=== PATIENT | male | born 1985 | race Caucasian/White ===

== ENCOUNTER → 2021-01-20 08:16 | Outpatient (BNVA) | payer SELFPAY | PROVIDERS: Visit Provider Physician Assistant | DX: K21.9 Gastro-esophageal reflux disease without esophagitis (principal); K22.70 Barrett's esophagus without dysplasia; R13.10 Dysphagia, unspecified | CPT/HCPCS: Q3014 ==

== ENCOUNTER 2021-02-08 10:34 | Day surgery (SDC) | payer OTHER, SELFPAY ==
[2021-02-02 16:07] VITALS: BMI 31.0
--- NOTE | 2021-02-04 13:59 | P.CONAN_ITS ---
Documented by User: Sheree Gordon 02/04/21 13:59 HPI - Anesthesia Eval Consult details Narrative: 35yo M for Upper Endoscopy PMFSH Active Problems Active Problems: All Active Problems (Updated 02/02/21 @ 16:04 by Millie Caldera) Odynophagia (Acute) Barretts esophagus (Acute) Acid reflux (Acute) Past Medical History Medical History (Updated 02/08/21 @ 12:23 by Jennifer Garcia) Acid reflux Allergic rhinitis Asthma Barretts esophagus GERD (gastroesophageal reflux disease) Heart murmur Hiatal hernia Family History Family History Paternal Grandfather Esophageal cancer Mother Diabetes Paternal Grandmother Diabetes Surgical History Surgical History History of ankle surgery History of esophagogastroduodenoscopy (EGD) Hx of colonoscopy Hx of myringotomy Hx of tonsillectomy [place] teeth extracted Social History Social History Household Members: Spouse and Children Alcohol intake: current Alcohol intake frequency: a few times a week Alcohol type: hard liquor Smoking Status: Never smoker Substance Use Type: Marijuana Advance Directives: No Advance Directives Information Provided: No Advance Directives on File: No 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 [employer] Allergies Allergy/AdvReac Type Severity Reaction Status Date / Time amoxicillin [AMOXICILLIN] Allergy Unknown unk Verified 02/08/21 11:01 Sulfa (Sulfonamide Allergy Unknown rash Verified 02/02/21 15:51 Antibiotics) bactrim Allergy Unknown Rash Uncoded 02/02/21 15:51 Home Medications Medication Instructions Recorded Confirmed Last Taken Type fluticasone furoate 50 1 inh INHALATION DAILY ea 01/20/21 02/02/21 Unknown History mcg/actuation blister powder for inhalation loratadine 10 mg tablet 10 mg PO DAILY 01/20/21 02/02/21 Unknown History fluticasone propionate 1 spray INTRANASAL BID 02/02/21 02/08/21 02/08/21 History Exam Exam Date and Time: February 04, 2021 1359 Height,Weight and Vital Signs: Height 6 ft 2 in Weight 109.769 kg Assessment and Plan Assessment Anesthesia Assessment: Chart Reviewed Documented by User: Jennifer Garcia 02/08/21 12:24 [facility] Past Medical History Medical History (Updated 02/08/21 @ 12:23 by Jenniefr Garcia) Acid reflux Allergic rhinitis Asthma Barretts esophagus GERD (gastroesophageal reflux disease) Heart murmur Hiatal hernia Family History Family History Paternal Grandfather Esophageal cancer Mother Diabetes Paternal Grandmother Diabetes Family history of problems with anesthesia: No Surgical History Surgical History History of ankle surgery History of esophagogastroduodenoscopy (EGD) Hx of colonoscopy Hx of myringotomy Hx of tonsillectomy [place] teeth extracted History of Problems with Anesthesia: No Social History Social History Household Members: Spouse and Children Alcohol intake: current Alcohol intake frequency: a few times a week Alcohol type: hard liquor Smoking Status: Never smoker Substance Use Type: Marijuana Advance Directives: No Advance Directives Information Provided: No Advance Directives on File: No 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 Meds Allergies Allergy/AdvReac Type Severity Reaction Status Date / Time amoxicillin [AMOXICILLIN] Allergy Unknown unk Verified 02/08/21 11:01 Sulfa (Sulfonamide Allergy Unknown rash Verified 02/02/21 15:51 Antibiotics) bactrim Allergy Unknown Rash Uncoded 02/02/21 15:51 Home Medications Medication Instructions Recorded Confirmed Last Taken Type fluticasone furoate 50 1 inh INHALATION DAILY ea 01/20/21 02/02/21 Unknown History mcg/actuation blister powder for inhalation loratadine 10 mg tablet 10 mg PO DAILY 01/20/21 02/02/21 Unknown History fluticasone propionate 1 spray INTRANASAL BID 02/02/21 02/08/21 02/08/21 History Exam Height,Weight and Vital Signs: Vital Signs Temp Pulse Resp BP Pulse Ox 02/08/21 11:06 98.7 F 82 16 136/97 H 98 Airway Mallampati Class: II TM Dist: >3cm Neck ROM: Full Loose/Missing/Broken Teeth: Yes (Some missing) Heart: RRR Lungs: CTAB Assessment and Plan Assessment Anesthesia Assessment: Anesthesia Plan Discussed and Chart Reviewed Final Anesthetic Review NPO: Yes ASA Class: II Final Preanesthetic Review: No Changes in Pt Med Stat, Meds/Allgs Chart Reviewed, Consent Obtained/Reviewed and Anes Risks/Benef Reviewed Patient Risk: Low Procedure Risk: Low Assessment/Block/Sedation in SS: Assess/Block/Sedation-SS Anesthetic Plan Anesthetic Plan: MAC: Disposition: Standard PACU
[2021-02-08 11:06] VITALS: BP 136/97; PULSE 82; RESP 16; TEMP 37.1; O2SAT 98
[2021-02-08] MEDS: Lactated Ringers 1,000 ML 100 ML IVCONT (11:21)
--- NOTE | 2021-02-08 12:19 | P.OP_ITS ---
Operative Note Operative Note Date of Service: 02/08/21 Narrative: Pre-op diagnosis: GERD Post-op diagnosis: other (Hiatal hernia, GERD) Procedure: FLEXIBLE TRANSORAL UPPER GASTROINTESTINAL ENDOSCOPY WITH BIOPSIES Consent: Indications for the procedure and potential complications of bleeding, perforation, reaction to medications and missed diagnosis were discussed with the patient and informed consent was obtained. Instrument: Olympus GIF H 190 mid size upper endoscope Monitoring: Vital signs and clinical assessment, continuous EKG monitoring, Pulse oximetry, Carbon Dioxide monitoring and blood pressure monitoring were done throughout the procedure. Procedure: The patient was placed in the left lateral decubitis position and pre-procedure medications were administered and a bite block was placed. The endoscope was inserted into the mouth and advanced under direct vision to the third part of duodenum. A careful inspection was made as the upper endoscope was withdrawn including a retroflexed examination of the proximal stomach; Findings and interventions are described below. Findings: Larynx: Normal Esophagus: GE junction at 40 cms, small hiatal hernia 40 to 42 cms. Multiple 1- 2 cms tongues of suspected Boo's - biopsies were obtained. Stomach: Mild gastric erythema. Biopsies were obtained. Grade 2 flap valve on retroflexed examination of the cardia. Duodenum: Normal bulb and descending duodenum Intervention: Biopsies as noted above Impression and Post Procedure Diagnosis: Endoscopy Findings: ESOPHAGUS: GE junction at 40 cms, small hiatal hernia 40 to 42 cms. Multiple 1- 2 cms tongues of suspected Boo's - biopsies were obtained. STOMACH: Mild gastritis Plan: Await pathology results Patient has an appointment on 02/22/21 in the GI Clinic with LAWSON Velazquez. If symptoms persist, consider a change in PPI. Above findings were reviewed with the patient and GERD and Boo's handouts were given in the discharge area Surgeon: Phillip Sol MD Anesthesia: MAC (Belgica Bennett CRNA) Automation Architect: Ed Phoenix Estimated blood loss (mL): 0 Pathology: other (A. GASTRIC ANTRUM R/O H PYLORI B. DISTAL ESOPHAGUS R/O BARRETTS) Condition: stable Disposition: PACU
--- NOTE | 2021-02-08 12:20 | MHC.SHP ---
Pre-Procedural Eval Section A The patient is an INPATIENT: No Changes since office visit: Yes Patient answered all questions; No Cold of Flu in the past 2 weeks, No New Medical Problems and No Changes in Medication The History & Physical has been completed within 30 days and I have reviewed it.: Yes Section B Chief Complaint: reflux disease Allergies: Allergies Allergy/AdvReac Type Severity Reaction Status Date / Time amoxicillin [AMOXICILLIN] Allergy Unknown unk Verified 02/08/21 11:01 Sulfa (Sulfonamide Allergy Unknown rash Verified 02/02/21 15:51 Antibiotics) bactrim Allergy Unknown Rash Uncoded 02/02/21 15:51 Exam Surgical H&P Exam: Normal: Heart, Normal: Lungs, Normal: Extremities and Normal: Abdomen Plan Diagnosis/Plan: Unchanged I have reviewed the history and physical and performed a pertinent physical examination on my patient. No changes have occurred unless specified.
[2021-02-08 12:51] VITALS: BP 128/89; PULSE 91; RESP 18; TEMP 36.7; O2SAT 97
[2021-02-08 13:06] VITALS: BP 126/84; PULSE 77; RESP 18; O2SAT 97
== END 2021-02-08 13:38 | disposition home or self-care (01) ==
PROVIDERS: PCP Internal Medicine; Visit Provider Internal Medicine Gastroenterology
PROC: 0DJ08ZZ Inspection of Upper Intestinal Tract, Via Natural or Artificial Opening Endoscopic (ICD-10-PCS; CPT 43235; principal; 2021-02-08 11:40)
DX: K21.9 Gastro-esophageal reflux disease without esophagitis (principal); K29.70 Gastritis, unspecified, without bleeding; K44.9 Diaphragmatic hernia without obstruction or gangrene; J45.909 Unspecified asthma, uncomplicated; Z79.51 Long term (current) use of inhaled steroids; Z79.899 Other long term (current) drug therapy; Z87.19 Personal history of other diseases of the digestive system; Z88.2 Allergy status to sulfonamides; Z88.8 Allergy status to other drugs, medicaments and biological substances
CPT/HCPCS: 43239; 88305; 88342; J3010

== ENCOUNTER → 2021-02-22 08:18 | Outpatient (BNVA) | payer OTHER, SELFPAY | PROVIDERS: Visit Provider Physician Assistant ==

== ENCOUNTER 2022-03-04 13:06 | Emergency (ER) | payer OTHER, SELFPAY ==
--- NOTE | ~2022-03-04 | CT_ITS ---
EXAMINATION: CT abdomen pelvis wo con CLINICAL INFORMATION: Reason for Exam abd pain, flank pain, WITH ORAL CONTRAST COMPARISON: No prior CT available for comparison. TECHNIQUE: Multidetector volumetric imaging was performed from the superior aspect of the liver through the pubic symphysis a noncontrasted study. Sagittal and coronal reformatted images were obtained on the technologist's workstation. This CT examination was performed using dose optimization techniques as appropriate, variously including the following: *Automated exposure control *Adjustment of mA and/or kV according to patient size (this includes techniques or standardized protocols for targeted exams where dose is matched to indication/reason for exam; i.e. extremities or head) *Use of iterative reconstruction technique DLP: 1120 mGy-cm FINDINGS: LOWER THORAX: Included lung bases are clear. HEPATOBILIARY: No focal hepatic lesions. No biliary ductal dilatation. GALLBLADDER: Gallbladder unremarkable. SPLEEN: Spleen is normal in size. PANCREAS: No focal mass or ductal dilatation. STOMACH AND GASTROINTESTINAL TRACT: Stomach is grossly unremarkable. There is segmental small bowel loops in the left upper abdomen which are mildly dilated interchangeably with a few segments of somewhat thickened bowel loops raising the possibility of enteritis which could be inflammatory or infection. More distally the small bowel loops are collapsed normal in diameter. No significant obstruction. No CT evidence of appendicitis. ADRENALS: No adrenal nodules. KIDNEYS/URETERS: No hydronephrosis, stones or solid mass lesions. URINARY BLADDER: Partially decompressed. PELVIC VISCERA: Unremarkable PERITONEUM: No free air or fluid. LYMPH NODES: No lymphadenopathy. VASCULAR:Abdominal aorta normal in size, no aneurysm found. BONES, ABDOMINAL WALL AND SOFT TISSUES: Age-appropriate changes of the spine and skeletal system, no destructive osteolytic or osteosclerotic bone lesion found CT/CT abdomen pelvis wo con IMPRESSION: Few segments of small bowel loops in the midabdomen left upper quadrant which exhibits circumferential wall thickening intrachanges with mildly dilated bowel loops raising the possibility of enteritis which could be inflammatory or infection including possible IBD. Please correlate with patient's clinical presentation and follow-up. Mid and distal small bowel loops are normal diameter collapse. If symptoms the last more than one week would suggest correlation with follow-up barium study small bowel series. More No evidence of bowel obstruction. No CT evidence of appendicitis, normal appendix identified in the right lower quadrant. No kidney stone or hydronephrosis.
[2022-03-04 14:00] VITALS: BP 138/97; PULSE 85; RESP 18; TEMP 36.2; O2SAT 100; BMI 40.6
[2022-03-04 14:13] LABS: MANUAL DIFF FLAG NO
[2022-03-04 14:17] LABS: Appearance Urine CLEAR; Basophils Percent Auto 0.3 % (0-2); Color Urine YELLOW; Eosinophils Absolute Auto 0.2 X10*3/uL (0.0-0.4); Eosinophils Percent Auto 2.6 % (0-4); Glucose Urine UA NEG (NEG); Hemoglobin 14.6 g/dl (14.0-18.0); Imm Gran Abs Auto 0.02 X10*3/uL (0.00-0.03); Imm Gran Pct Auto 0.2 % (0.0-0.4); Leukocyte Esterase Urine NEG (NEG); Lymphocytes Absolute Auto 2.3 X10*3/uL (1.2-4.9); Lymphocytes Percent Auto 26.7 % (20-40); Mean Corpuscular HGB Conc 32.4 g/dl (31.0-36.0); Mean Corpuscular Hemoglobin 28.1 pg (27.0-33.0); Mean Corpuscular Volume 86.5 fL (80.0-98.0); Monocytes Absolute Auto 0.5 X10*3/uL (0.1-1.2); Neutrophils Absolute Auto 5.6 x10*3/uL (2.0-8.3); Neutrophils Percent Auto 64.2 % (45-73); Nitrite Urine NEG (NEG); PH 6.5 (5.0-8.0); Platelet Count 349 X10*3/uL (160-400); Red Cell Distribution Width 12.9 % (11.0-16.0); Urine Blood NEG (NEG); Urine Ketones NEG (NEG); Urine Protein NEG (NEG-TRACE); White Blood Count 8.7 X10*3/uL (4.8-10.8)
[2022-03-04 14:42] LABS: Anion Gap 11 (12-20); Blood Urea Nitrogen 11 mg/dL (9-16); Calcium 9.5 mg/dL (8.4-10.2); Carbon Dioxide 27 mmol/L (22-29); Chloride 105 mmol/L (96-108); Creatinine Clr Calc Pharmacy 183.4; Estimated Glomerular Filt Rate > 60; Glucose Random 98 mg/dL (60-115); Potassium 4.5 mmol/L (3.3-5.1); Sodium 138 mmol/L (135-145)
--- NOTE | 2022-03-04 18:09 | ED_ITS ---
HPI - Abdominal Pain General Chief Complaint: Abdominal Pain Stated Complaint: pain in lower back Time Seen by Provider: 03/04/22 18:45 Source: patient Mode of arrival: ambulatory Limitations: no limitations History of Present Illness HPI narrative: 36-year-old male presents with left-sided flank pain, back pain and diffuse abdominal pain. Was evaluated at urgent care and referred to the emergency department for further testing. MD elicited complaint: abdominal pain Pertinent past history: none Onset (ago): day(s) (3) Pain Consistency: constant Location: diffuse Severity: moderate Pain scale (0-10): 7 Quality: cramping and aching Exacerbating factors: eating and movement Relieving factors: nothing Associated symptoms: chills Related Data Home Medications Medication Instructions Recorded Confirmed fluticasone furoate 50 1 inh INHALATION DAILY ea 01/20/21 02/22/21 mcg/actuation blister powder for inhalation loratadine 10 mg tablet (Allergy 10 mg PO DAILY 01/20/21 02/22/21 Relief (loratadine)) fluticasone propionate 50 1 spray INTRANASAL BID 02/02/21 02/22/21 mcg/actuation nasal spray,suspension Previous Rx's Medication Instructions Recorded sucralfate 1 gram tablet 1 g PO BID #180 tab 11/05/20 omeprazole 40 mg capsule,delayed 40 mg PO DAILY 30 Days #30 cap 02/22/21 release ciprofloxacin HCl 500 mg tablet 500 mg PO Q12H 7 Days #14 tab 03/04/22 metronidazole 500 mg tablet 500 mg PO Q8H 7 Days #21 tab 03/04/22 oxycodone 5 mg tablet 5 mg PO Q6H PRN #12 tab 03/04/22 Allergies Allergy/AdvReac Type Severity Reaction Status Date / Time amoxicillin [AMOXICILLIN] Allergy Unknown unk Verified 02/22/21 08:18 Sulfa (Sulfonamide Allergy Unknown rash Verified 02/22/21 08:18 Antibiotics) bactrim Allergy Unknown Rash Uncoded 02/22/21 08:18 Review of Systems Review of Systems Constitutional: No Weight loss, No Fever, positive Chills, No Night Sweats, positive Fatigue, No Malaise ENT/Mouth: No Hearing loss, No Ear Pain, No Nasal Congestion, No Sinus Pain, No Hoarseness, No sore throat, No Rhinorrhea, No Swallowing Difficulty Eyes: No Eye Pain, No Swelling, No Redness, No Foreign Body, No Discharge, No Vision Changes Cardiovascular: No Chest Pain, No SOB, No Dyspnea on Exertion, No Orthopnea, No Edema, No Palpitations Respiratory: No Cough, No Sputum, No Wheezing, No Smoke Exposure, No Dyspnea Gastrointestinal: No Nausea, no Vomiting, no Diarrhea, positive abdominal Pain, No Hematochezia, No Melena Genitourinary: no irregular bleeding, No Dysuria, No Urinary Frequency, No Hematuria, No Urinary Incontinence, No Urgency, positive Flank Pain, No Urinary Flow Changes, No Hesitancy Musculoskeletal: No joint pain, No Myalgias, No Joint Swelling Skin: No Skin Lesions, No rash Neuro: No Weakness, No Numbness, No Paresthesias, No Loss of Consciousness, No Dizziness, No Headache Psych: No Anxiety/Panic, No Depression, No SI/HI/AH/VH, No Social Issues Heme/Lymph: No Bruising, No Bleeding,No Lymphadenopathy Endocrine: No Polyuria, No Polydipsia, No Temperature Intolerance Yes all other systems are reviewed and are negative [facility] Past Medical History Attestation statement: The following information was validated with the patient. Source: old records reviewed Medical History Acid reflux Allergic rhinitis Asthma Barretts esophagus GERD (gastroesophageal reflux disease) Heart murmur Hiatal hernia Surgical History History of ankle surgery History of esophagogastroduodenoscopy (EGD) Hx of colonoscopy Hx of myringotomy Hx of tonsillectomy [place] teeth extracted Family History Family History Paternal Grandfather Esophageal cancer Mother Diabetes Acid reflux Paternal Grandmother Diabetes Social History Social History Household Members: Spouse and Children Alcohol intake: current Alcohol intake frequency: holidays/special occasions only Substance Use Type: Marijuana Advance Directives: No Advance Directives Information Provided: No Current occupation: [employer] Exam ED Vital Signs: Vital Signs - 24 hr 03/04/22 14:00 03/04/22 18:38 03/04/22 20:27 Temperature 97.2 F 98.7 F Pulse Rate 85 84 67 Respiratory Rate 18 20 14 Blood Pressure 138/97 H 129/83 122/83 Pulse Oximetry 100 99 99 03/04/22 22:26 Temperature Pulse Rate 79 Respiratory Rate 14 Blood Pressure 136/85 Pulse Oximetry 98 BMI result Body Mass Index 40.6 Appearance: Alert. Oriented X3. Mild distress. Eyes: Pupils equal, round and reactive to light. Sclera nonicteric. ENT: Pharynx normal. Moist mucous membranes. Neck: Normal inspection. Neck supple. CVS: Normal heart rate and rhythm. Pulses normal. Respiratory: No respiratory distress. Breath sounds normal. Abdomen: Soft and diffusely tender, obese, positive left-sided CVA tenderness. Skin: Skin warm and dry. Normal skin color. Normal skin turgor. Extremities: No lower extremity edema. Gait well-balanced well coordinated. Neuro: No motor deficit. No sensory deficit. Cranial nerves 2-12 intact MDM - Abdominal Pain Differential Diagnosis Differential diagnosis: Likely abdominal pain, acute appendicitis, calculus of kidney, diverticulitis, gastroenteritis and pancreatitis Medical Records Attestation: I reviewed the patient's medical records. Lab Data Attestation: I reviewed the patient's lab results. Result diagrams: 03/04/22 14:09 03/04/22 14:09 Labs: Lab Results 03/04/22 03/04/22 03/04/22 Range/Units 14:09 14:09 14:09 WBC 8.7 (4.8-10.8) X10*3/uL RBC 5.20 (4.60-5.80) X10*6/uL Hgb 14.6 (14.0-18.0) g/dl Hct 45.0 (42.0-52.0) % MCV 86.5 (80.0-98.0) fL MCH 28.1 (27.0-33.0) pg MCHC 32.4 (31.0-36.0) g/dl RDW 12.9 (11.0-16.0) % Plt Count 349 (160-400) X10*3/uL MPV 9.0 L (9.4-12.4) fL Immature Gran % (Auto) 0.2 (0.0-0.4) % Neut % (Auto) 64.2 (45-73) % Lymph % (Auto) 26.7 (20-40) % Power % (Auto) 6.0 (2-11) % Eos % (Auto) 2.6 (0-4) % Baso % (Auto) 0.3 (0-2) % Lymph # (Auto) 2.3 (1.2-4.9) X10*3/uL Power # (Auto) 0.5 (0.1-1.2) X10*3/uL Eos # (Auto) 0.2 (0.0-0.4) X10*3/uL Baso # (Auto) 0.0 (0.0-0.2) X10*3/uL Abs Immat Gran (auto) 0.02 (0.00-0.03) X10*3/uL Absolute Neuts (auto) 5.6 (2.0-8.3) x10*3/uL Absolute Nucleated RBC 0.000 (0.0-0.012) X10*3/uL Nucleated RBC % (auto) 0.0 (0.0-0.2) /100WBC Sodium 138 (135-145) mmol/L Potassium 4.5 (3.3-5.1) mmol/L Chloride 105 (96-108) mmol/L Carbon Dioxide 27 (22-29) mmol/L Anion Gap 11 L (12-20) BUN 11 (9-16) mg/dL Creatinine 0.78 (0.5-1.4) mg/dL Estim Creat Clear Calc 183.4 Estimated GFR > 60 Random Glucose 98 (60-115) mg/dL Calcium 9.5 (8.4-10.2) mg/dL Urine Color YELLOW Urine Appearance CLEAR Urine pH 6.5 (5.0-8.0) Ur Specific [place] 1.010 (1.005-1.025) Urine Protein NEG (NEG-TRACE) MG/DL Urine Glucose (UA) NEG (NEG) MG/DL Urine Ketones NEG (NEG) MG/DL Urine Blood NEG (NEG) Urine Nitrite NEG (NEG) Ur Leukocyte Esterase NEG (NEG) Imaging Data CT abdomen pelvis: Attestation: I personally reviewed and interpreted this imaging study as follows: Radiologist's impression: FINDINGS: LOWER THORAX: Included lung bases are clear. HEPATOBILIARY: No focal hepatic lesions. No biliary ductal dilatation. GALLBLADDER: Gallbladder unremarkable. SPLEEN: Spleen is normal in size. PANCREAS: No focal mass or ductal dilatation. STOMACH AND GASTROINTESTINAL TRACT: Stomach is grossly unremarkable. There is segmental small bowel loops in the left upper abdomen which are mildly dilated interchangeably with a few segments of somewhat thickened bowel loops raising the possibility of enteritis which could be inflammatory or infection. More distally the small bowel loops are collapsed normal in diameter. No significant obstruction. No CT evidence of appendicitis. ADRENALS: No adrenal nodules. KIDNEYS/URETERS: No hydronephrosis, stones or solid mass lesions. URINARY BLADDER: Partially decompressed. PELVIC VISCERA: Unremarkable PERITONEUM: No free air or fluid. LYMPH NODES: No lymphadenopathy. VASCULAR:Abdominal aorta normal in size, no aneurysm found. BONES, ABDOMINAL WALL AND SOFT TISSUES: Age-appropriate changes of the spine and skeletal system, no destructive osteolytic or osteosclerotic bone lesion found CT/CT abdomen pelvis wo con IMPRESSION: Few segments of small bowel loops in the midabdomen left upper quadrant which exhibits circumferential wall thickening intrachanges with mildly dilated bowel loops raising the possibility of enteritis which could be inflammatory or infection including possible IBD. Please correlate with patient's clinical presentation and follow-up. Mid and distal small bowel loops are normal diameter collapse. If symptoms the last more than one week would suggest correlation with follow-up barium study small bowel series. ? More No evidence of bowel obstruction. ? No CT evidence of appendicitis, normal appendix identified in the right lower quadrant. ? No kidney stone or hydronephrosis. ? ? Discharge Plan Discharge Clinical Impression: Enteritis, Abdominal pain Patient Disposition: Home, Self-Care Instructions: Gastroenteritis (ED), Abdominal Pain (ED), Enteritis (ED) Additional Instructions: You were evaluated for diffuse abdominal pain. CT scan indicates enteritis. Please take ciprofloxacin 500 mg twice a day for 7 days. Take Flagyl 500 mg 3 times a day for 7 days. Take oxycodone 5 mg every 6 hours as needed for pain management. This medication is a narcotic and has high risk for addiction and abuse. Do not drive or operate machinery while taking this medication. This medication can cause drowsiness, delay reaction time, increased risk for falls, and cause constipation. Please drink plenty of fluids while taking this medication. Please use MiraLax as needed to prevent constipation. You must follow-up with your primary care physician. You may consider following up with Gastroenterology for evaluation. I referred you to Dr. Sol. Return if you develop fevers, chills, and worsening abdominal pain. Thank you for choosing this emergency department for evaluation. Please follow-up with primary care physician as needed. Return to the emergency department for any new, concerning, or worsening symptoms. Prescriptions: New ciprofloxacin HCl 500 mg tablet 500 mg PO Q12H 7 Days Qty: 14 0RF metronidazole 500 mg tablet 500 mg PO Q8H 7 Days Qty: 21 0RF oxycodone 5 mg tablet 5 mg PO Q6H PRN (Reason: pain) Qty: 12 0RF Rx Instructions: Enteritis No Action sucralfate 1 gram tablet 1 g PO BID Qty: 180 0RF fluticasone propionate 50 mcg/actuation spray,suspension 1 spray intranasal BID 0RF fluticasone furoate 50 mcg/actuation blister with device 1 inh inhalation DAILY 0RF loratadine [Allergy Relief (loratadine)] 10 mg tablet 10 mg PO DAILY 0RF omeprazole 40 mg capsule,delayed release(DR/EC) 40 mg PO DAILY 30 Days Qty: 30 12RF Referrals: Phillip Sol MD [Physician] - (Enteritis) Stand Alone Forms: Work/School Release
[2022-03-04 18:38] VITALS: BP 129/83; PULSE 84; RESP 20; TEMP 37.1; O2SAT 99
[2022-03-04] MEDS: ondansetron HCL 4 MG/2 ML VIAL IVPUSH (18:45)
[2022-03-04] MEDS: Morphine Sulfate 4 MG/ML CARTRIDGE IVPUSH (18:45)
[2022-03-04 20:27] VITALS: BP 122/83; PULSE 67; RESP 14; O2SAT 99
[2022-03-04] MEDS: Barium Sulfate Oral (Berry) 450 ML ORAL.SUSP 900 ML PO (21:21)
[2022-03-04 22:26] VITALS: BP 136/85; PULSE 79; RESP 14; O2SAT 98
== END 2022-03-04 23:12 | disposition home or self-care (01) ==
PROVIDERS: Emergency Provider Internal Medicine
DX: K52.9 Noninfective gastroenteritis and colitis, unspecified (principal); R10.9 Unspecified abdominal pain; M54.50 Low back pain, unspecified; J45.909 Unspecified asthma, uncomplicated
CPT/HCPCS: 36415; 74176; 80048; 81003; 85025; 96374; 96375; 99283; 99284; J2270; J2405

== ENCOUNTER 2022-03-08 06:54 | Emergency (ER) | payer OTHER, SELFPAY ==
--- NOTE | ~2022-03-08 | US_ITS ---
EXAMINATION: US ABDOMEN LIMITED CLINICAL INFORMATION: Abdominal pain and elevated LFTs, rule out gallbladder disease.. COMPARISON: 04/17/2019 abdominal ultrasound. TECHNIQUE: Real-time imaging of the right upper quadrant abdominal viscera. FINDINGS: PANCREAS: Visualized portions unremarkable. LIVER: Visualized portions unremarkable. GALLBLADDER: Unremarkable. The gallbladder is physiologically distended without evidence of stones, sludge, polyps, wall thickening or pericholecystic fluid. COMMON BILE DUCT: Normal in caliber measuring 0.5 cm in diameter. FREE FLUID: None. US/US abdomen limited IMPRESSION: No significant gallbladder abnormality.
[2022-03-08 07:05] VITALS: BP 122/76; PULSE 86; RESP 16; TEMP 36.3; O2SAT 99; BMI 40.6
--- NOTE | 2022-03-08 07:13 | ED_ITS ---
HPI - General Adult General Chief complaint: General Medical Stated complaint: grastric issue back pain Time Seen by Provider: 03/08/22 07:13 Source: patient Mode of arrival: ambulatory Limitations: no limitations History of Present Illness HPI narrative: 36-year-old male came in for evaluation of abdominal pain. Abdominal pain started 2 weeks ago described as intermittent cramps feels like something moving inside the abdomen, patient was seen and evaluated in the emergency department 4 days ago, had had a CT of the abdomen which showed possible enteritis patient was started on Cipro/Flagyl, patient returned today for persistent of the symptoms. Patient reported normal bowel movement every morning with no blood per rectum, no nausea, no vomiting, no weight loss, has been eating normal with normal appe tite. Patient returns today for re-evaluation. No abdominal surgical history. Related Data Home Medications Medication Instructions Recorded Confirmed fluticasone furoate 50 1 inh INHALATION DAILY ea 01/20/21 02/22/21 mcg/actuation blister powder for inhalation loratadine 10 mg tablet (Allergy 10 mg PO DAILY 01/20/21 02/22/21 Relief (loratadine)) fluticasone propionate 50 1 spray INTRANASAL BID 02/02/21 02/22/21 mcg/actuation nasal spray,suspension Previous Rx's Medication Instructions Recorded sucralfate 1 gram tablet 1 g PO BID #180 tab 11/05/20 omeprazole 40 mg capsule,delayed 40 mg PO DAILY 30 Days #30 cap 02/22/21 release ciprofloxacin HCl 500 mg tablet 500 mg PO Q12H 7 Days #14 tab 03/04/22 metronidazole 500 mg tablet 500 mg PO Q8H 7 Days #21 tab 03/04/22 oxycodone 5 mg tablet 5 mg PO Q6H PRN #12 tab 03/04/22 oxycodone 5 mg tablet 5 mg PO Q6H PRN 3 Days #12 tab 03/04/22 Allergies Allergy/AdvReac Type Severity Reaction Status Date / Time amoxicillin [AMOXICILLIN] Allergy Unknown unk Verified 02/22/21 08:18 Sulfa (Sulfonamide Allergy Unknown rash Verified 02/22/21 08:18 Antibiotics) bactrim Allergy Unknown Rash Uncoded 02/22/21 08:18 Review of Systems Review of Systems: All other systems are reviewed and are negative Constitutional: Reports as per HPI and Reports no additional constitutional complaints Eyes: Reports as per HPI and Reports no additional eye complaints Reports system reviewed and no additional complaints, except as documented Cardiovascular: Reports as per HPI and Reports no additional cardiovascular complaints Respiratory: Reports as per HPI and Reports no additional respiratory complaints Gastrointestinal: Reports as per HPI and Reports no additional gastrointestinal complaints Genitourinary: Reports no additional female genitourinary complaints Musculoskeletal: Reports no additional musculoskeletal complaints Skin/Breast: Reports system reviewed and no additional complaints, except as docu Psychiatric: Reports no additional psychiatric complaints Endocrine: Reports no additional endocrine complaints Hematologic/Lymphatic: Reports no additional hematologic/lymphatic complaints Allergic/Immunologic: Reports no additional allergic/immunologic complaints Reports system reviewed and no additional complaints, except as documented and Reports Abnormal speech present [facility] Past Medical History Medical History Acid reflux Allergic rhinitis Asthma Barretts esophagus GERD (gastroesophageal reflux disease) Heart murmur Hiatal hernia Surgical History History of ankle surgery History of esophagogastroduodenoscopy (EGD) Hx of colonoscopy Hx of myringotomy Hx of tonsillectomy [place] teeth extracted Family History Family History Paternal Grandfather Esophageal cancer Mother Diabetes Acid reflux Paternal Grandmother Diabetes Social History Social History Household Members: Spouse and Children Alcohol intake: current Alcohol intake frequency: holidays/special occasions only Substance Use Type: Marijuana Advance Directives: No Advance Directives Information Provided: No 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 Blood pressure normal. Heart rate normal. Respiration rate normal. Temperature normal. Oxy gen saturation normal. Appearance: Alert. Oriented X3. No acute distress. Head: Normal external exam. Normocephalic. Atraumatic. No [place] signs noted. No raccoon eyes noted Eyes: PERRLA. EOMI. Conjunctiva and sclera normal. Eyelids normal. ENT: TM's Normal. Pharynx normal. Uvula midline. Moist mucous membranes. No trismus noted. No drooling noted. No muffled voice noted. Neck: Normal inspection. Neck supple. FROM. No adenopathy. Thyroid Normal. No meningeal signs. No neck mass noted. CVS: Normal heart rate and rhythm. Heart sound normal. No murmurs noted. Pulses normal throughout. Respiratory: No respiratory distress. Painless inspiration. Breath sounds no rmal. No wheezes/rales/rhonchi noted. Chest nontender. No accessory muscle usage noted or decreased air movement noted. Abdomen: Soft and nontender. Bowel sounds normal in all 4 quadrants. No disten tion noted. No organomegaly noted. No visible injury noted. Back: No CVA tenderness. Full range of motion noted. Skin: Skin warm and dry. Normal skin color. Normal skin turgor. No rashes/lesions/lacerations noted. Extremities: No lower extremity edema. Extremities exhibit normal range of mo tion. Extremities nontender. Neuro: Oriented X 3. Cranial nerve exam: II-XII are grossly intact No motor deficit. No sensory deficit. Reflexes normal. Course Course Course Narrative: Assessment and plan. 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 Patient was reassured and instructed to reduce fatty/greasy/fried foods and exercise. Medical Decision Making Lab Data Lab results reviewed: Yes I reviewed the patient's lab results. Result diagrams: 03/08/22 07:55 03/08/22 07:55 Labs: Lab Results 03/08/22 03/08/22 03/08/22 Range/Units 07:55 07:55 07:55 WBC 6.8 (4.8-10.8) X10*3/uL RBC 5.28 (4.60-5.80) X10*6/uL Hgb 14.8 (14.0-18.0) g/dl Hct 45.5 (42.0-52.0) % MCV 86.2 (80.0-98.0) fL MCH 28.0 (27.0-33.0) pg MCHC 32.5 (31.0-36.0) g/dl RDW 12.8 (11.0-16.0) % Plt Count 347 (160-400) X10*3/uL MPV 9.1 L (9.4-12.4) fL Immature Gran % (Auto) 0.3 (0.0-0.4) % Neut % (Auto) 64.1 (45-73) % Lymph % (Auto) 24.6 (20-40) % [place] % (Auto) 7.8 (2-11) % Eos % (Auto) 2.9 (0-4) % Baso % (Auto) 0.3 (0-2) % Lymph # (Auto) 1.7 (1.2-4.9) X10*3/uL [place] # (Auto) 0.5 (0.1-1.2) X10*3/uL Eos # (Auto) 0.2 (0.0-0.4) X10*3/uL Baso # (Auto) 0.0 (0.0-0.2) X10*3/uL Abs Immat Gran (auto) 0.02 (0.00-0.03) X10*3/uL Absolute Neuts (auto) 4.4 (2.0-8.3) x10*3/uL Absolute Nucleated RBC 0.000 (0.0-0.012) X10*3/uL Nucleated RBC % (auto) 0.0 (0.0-0.2) /100WBC Sodium 139 (135-145) mmol/L Potassium 4.6 (3.3-5.1) mmol/L Chloride 105 (96-108) mmol/L Carbon Dioxide 26 (22-29) mmol/L Anion Gap 13 (12-20) BUN 11 (9-16) mg/dL Creatinine 0.85 (0.5-1.4) mg/dL Estim Creat Clear Calc 168.3 Estimated GFR > 60 Random Glucose 111 (60-115) mg/dL Calcium 9.5 (8.4-10.2) mg/dL Total Bilirubin 0.4 (0.0-1.0) mg/dL Direct Bilirubin 0.3 (0.0-0.5) mg/dL AST 67 H (5-37) U/L ALT 111 H (0-40) U/L Alkaline Phosphatase 69 (39-117) U/L Total Protein 7.3 (6.5-8.0) g/dL Albumin 4.3 (3.5-5.0) g/dL Lipase 16 (8-78) U/L Urine Color YELLOW Urine Appearance CLEAR Urine pH 6.0 (5.0-8.0) Ur Specific [place] 1.015 (1.005-1.025) Urine Protein NEG (NEG-TRACE) MG/DL Urine Glucose (UA) NEG (NEG) MG/DL Urine Ketones NEG (NEG) MG/DL Urine Blood NEG (NEG) Urine Nitrite NEG (NEG) Ur Leukocyte Esterase NEG (NEG) Imaging Data Abdominal ultrasound: Attestation: I personally reviewed and interpreted this imaging study as follows: Radiologist's impression: No significant gallbladder abnormality. Discharge Plan Discharge Clinical Impression: Abdominal pain, Elevated liver function tests Patient Disposition: Home, Self-Care Instructions: Abdominal Pain (ED) Prescriptions: No Action sucralfate 1 gram tablet 1 g PO BID Qty: 180 0RF fluticasone propionate 50 mcg/actuation spray,suspension 1 spray intranasal BID 0RF ciprofloxacin HCl 500 mg tablet 500 mg PO Q12H 7 Days Qty: 14 0RF metronidazole 500 mg tablet 500 mg PO Q8H 7 Days Qty: 21 0RF oxycodone 5 mg tablet 5 mg PO Q6H PRN (Reason: pain) Qty: 12 0RF Rx Instructions: Enteritis oxycodone 5 mg tablet 5 mg PO Q6H PRN (Reason: pain) 3 Days Qty: 12 0RF fluticasone furoate 50 mcg/actuation blister with device 1 inh inhalation DAILY 0RF loratadine [Allergy Relief (loratadine)] 10 mg tablet 10 mg PO DAILY 0RF omeprazole 40 mg capsule,delayed release(DR/EC) 40 mg PO DAILY 30 Days Qty: 30 12RF Referrals: Jarod Nieves MD [Primary Care Provider] -
[2022-03-08] MEDS: 0.9 % Sodium Chloride 1,000 ML 999 ML IV (07:57)
[2022-03-08] MEDS: Ketorolac Tromethamine 15 MG/ML VIAL IVPUSH (08:02)
[2022-03-08 08:03] LABS: MANUAL DIFF FLAG NO
[2022-03-08 08:08] LABS: Basophils Percent Auto 0.3 % (0-2); Eosinophils Absolute Auto 0.2 X10*3/uL (0.0-0.4); Eosinophils Percent Auto 2.9 % (0-4); Hematocrit 45.5 % (42.0-52.0); Hemoglobin 14.8 g/dl (14.0-18.0); Imm Gran Abs Auto 0.02 X10*3/uL (0.00-0.03); Imm Gran Pct Auto 0.3 % (0.0-0.4); Lymphocytes Absolute Auto 1.7 X10*3/uL (1.2-4.9); Lymphocytes Percent Auto 24.6 % (20-40); Mean Corpuscular HGB Conc 32.5 g/dl (31.0-36.0); Mean Corpuscular Volume 86.2 fL (80.0-98.0); Mean Platelet Volume 9.1 fL (9.4-12.4); Monocytes Absolute Auto 0.5 X10*3/uL (0.1-1.2); Monocytes Percent Auto 7.8 % (2-11); Neutrophils Absolute Auto 4.4 x10*3/uL (2.0-8.3); Neutrophils Percent Auto 64.1 % (45-73); Platelet Count 347 X10*3/uL (160-400); Red Blood Count 5.28 X10*6/uL (4.60-5.80); Red Cell Distribution Width 12.8 % (11.0-16.0); White Blood Count 6.8 X10*3/uL (4.8-10.8)
[2022-03-08 08:10] LABS: Appearance Urine CLEAR; Color Urine YELLOW; Glucose Urine UA NEG (NEG); Leukocyte Esterase Urine NEG (NEG); Nitrite Urine NEG (NEG); Specific Gravity - Urine 1.015 (1.005-1.025); Urine Blood NEG (NEG); Urine Ketones NEG (NEG); Urine Protein NEG (NEG-TRACE)
[2022-03-08 08:24] LABS: Alanine Aminotransferase 111 U/L (0-40); Albumin Level 4.3 g/dL (3.5-5.0); Alkaline Phosphatase 69 U/L (39-117); Anion Gap 13 (12-20); Aspartate Amino Transferase 67 U/L (5-37); Bilirubin Direct 0.3 mg/dL (0.0-0.5); Bilirubin Total 0.4 mg/dL (0.0-1.0); Blood Urea Nitrogen 11 mg/dL (9-16); Calcium 9.5 mg/dL (8.4-10.2); Carbon Dioxide 26 mmol/L (22-29); Chloride 105 mmol/L (96-108); Creatinine Clr Calc Pharmacy 168.3; Estimated Glomerular Filt Rate > 60; Glucose Random 111 mg/dL (60-115); Lipase 16 U/L (8-78); Potassium 4.6 mmol/L (3.3-5.1); Sodium 139 mmol/L (135-145); Total Protein 7.3 g/dL (6.5-8.0)
[2022-03-08 11:17] VITALS: BP 144/74; PULSE 77; RESP 18; O2SAT 98
== END 2022-03-08 11:18 | disposition home or self-care (01) ==
PROVIDERS: Emergency Provider Emergency Medicine; PCP Internal Medicine
DX: R10.11 Right upper quadrant pain (principal); M54.50 Low back pain, unspecified; R79.89 Other specified abnormal findings of blood chemistry; Z79.899 Other long term (current) drug therapy
CPT/HCPCS: 36415; 76705; 80048; 80076; 81003; 83690; 85025; 96361; 96374; 99284; J1885

== ENCOUNTER 2022-03-23 12:55 | Outpatient (REF) | payer OTHER, SELFPAY ==
[2022-03-23 15:56] LABS: Basophils Percent Auto 0.3 % (0-2); Eosinophils Absolute Auto 0.3 X10*3/uL (0.0-0.4); Eosinophils Percent Auto 2.9 % (0-4); Hematocrit 42.8 % (42.0-52.0); Hemoglobin 13.9 g/dl (14.0-18.0); Imm Gran Abs Auto 0.03 X10*3/uL (0.00-0.03); Imm Gran Pct Auto 0.3 % (0.0-0.4); Lymphocytes Absolute Auto 2.1 X10*3/uL (1.2-4.9); Lymphocytes Percent Auto 24.7 % (20-40); MANUAL DIFF FLAG NO; Mean Corpuscular HGB Conc 32.5 g/dl (31.0-36.0); Mean Corpuscular Hemoglobin 27.7 pg (27.0-33.0); Mean Corpuscular Volume 85.4 fL (80.0-98.0); Mean Platelet Volume 9.2 fL (9.4-12.4); Monocytes Absolute Auto 0.6 X10*3/uL (0.1-1.2); Monocytes Percent Auto 6.9 % (2-11); Neutrophils Absolute Auto 5.6 x10*3/uL (2.0-8.3); Neutrophils Percent Auto 64.9 % (45-73); Platelet Count 344 X10*3/uL (160-400); Red Blood Count 5.01 X10*6/uL (4.60-5.80); Red Cell Distribution Width 12.7 % (11.0-16.0); White Blood Count 8.7 X10*3/uL (4.8-10.8)
== END 2022-03-23 12:56 | disposition home or self-care (01) ==
LOC: HO.LAB 12:55
PROVIDERS: PCP Internal Medicine; Referring Provider Internal Medicine; Visit Provider Physician Assistant
DX: R10.9 Unspecified abdominal pain (principal); R93.5 Abnormal findings on diagnostic imaging of other abdominal regions, including retroperitoneum; K52.9 Noninfective gastroenteritis and colitis, unspecified
CPT/HCPCS: 36415; 85025

== ENCOUNTER 2022-04-06 08:59 | Day surgery (SDC) | payer OTHER, SELFPAY ==
[2022-03-31 20:08] VITALS: BMI 38.5
--- NOTE | 2022-04-05 10:31 | HO.ANESPROP2 ---
Documented by User: Sheree Gordon NP 04/05/22 10:33 HPI - Anesthesia Eval Consult details Narrative: 36yo M for Colonoscopy s/p EGD 01/2021 with TIVA PMFSH Active Problems Active Problems: All Active Problems (Updated 03/31/22 @ 20:08 by Paulina eCsar RN) Odynophagia (Acute) Hiatal hernia (Acute) Abdominal pain (Acute) Abnormal CT of the abdomen (Acute) Barretts esophagus (Acute) Acid reflux (Acute) Past Medical History Medical History Acid reflux Allergic rhinitis Asthma Back pain Barretts esophagus GERD (gastroesophageal reflux disease) Heart murmur Hiatal hernia Family History Family History Paternal Grandfather Esophageal cancer Mother Diabetes Acid reflux Paternal Grandmother Diabetes Family history of problems with anesthesia: No Surgical History Surgical History History of ankle surgery History of esophagogastroduodenoscopy (EGD) Hx of colonoscopy Hx of myringotomy Hx of tonsillectomy [place] teeth extracted History of Problems with Anesthesia: No Social History Social History Household Members: Spouse and Children Alcohol intake: current Alcohol intake frequency: holidays/special occasions only Patient Tobacco Use Status: Never used Tobacco Substance Use Type: Marijuana Substance Use Type Other:: EDIBLES Substance Use Frequency: Daily Are you DNR?: No Advance Directives: No Advance Directives Information Provided: Yes Advance Directives on File: No Recently lost weight without trying: No Nutrition Risks: No Nutritional Risk 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 Allergies Allergy/AdvReac Type Severity Reaction Status Date / Time amoxicillin [AMOXICILLIN] Allergy Unknown unk Verified 03/23/22 13:06 Sulfa (Sulfonamide Allergy Unknown rash Verified 03/23/22 13:06 Antibiotics) bactrim Allergy Unknown Rash Uncoded 02/22/21 08:18 Home Medications Medication Instructions Recorded Confirmed Last Taken Type fluticasone furoate 50 1 inh inhalation DAILY 01/20/21 03/31/22 Unknown History mcg/actuation blister powder for inhalation loratadine 10 mg tablet (Allergy 10 mg PO DAILY 01/20/21 04/06/22 04/06/22 07:30 History Relief (loratadine)) fluticasone propionate 50 1 spray intranasal BID 02/02/21 03/31/22 02/08/21 History mcg/actuation nasal spray,suspension Exam Exam Date and Time: April 05, 2022 1031 Height,Weight and Vital Signs: Height 6 ft 2 in Weight 136.078 kg Pertinent Lab Results Pertinent Lab Results: Laboratory Tests 03/08/22 03/23/22 07:55 15:31 WBC 8.7 Hgb 13.9 L Hct 42.8 Plt Count 344 Sodium 139 Potassium 4.6 Chloride 105 Carbon Dioxide 26 BUN 11 Creatinine 0.85 Assessment and Plan Assessment Anesthesia Assessment: Chart Reviewed Final Anesthetic Review Family History of Problems with Anesthesia: No History of Problems with Anesthesia: No Documented by User: Yeyo Kraft MD 04/06/22 09:51 PMFSH Past Medical History Medical History Acid reflux Allergic rhinitis Asthma Back pain Barretts esophagus GERD (gastroesophageal reflux disease) Heart murmur Hiatal hernia Family History Family History Paternal Grandfather Esophageal cancer Mother Diabetes Acid reflux Paternal Grandmother Diabetes Surgical History Surgical History History of ankle surgery History of esophagogastroduodenoscopy (EGD) Hx of colonoscopy Hx of myringotomy Hx of tonsillectomy [place] teeth extracted Social History Social History Household Members: Spouse and Children Alcohol intake: current Alcohol intake frequency: holidays/special occasions only Patient Tobacco Use Status: Never used Tobacco Substance Use Type: Marijuana Substance Use Type Other:: EDIBLES Substance Use Frequency: Daily Are you DNR?: No Advance Directives: No Advance Directives Information Provided: Yes Advance Directives on File: No Recently lost weight without trying: No Nutrition Risks: No Nutritional Risk 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 Allergy/AdvReac Type Severity Reaction Status Date / Time amoxicillin [AMOXICILLIN] Allergy Unknown unk Verified 03/23/22 13:06 Sulfa (Sulfonamide Allergy Unknown rash Verified 03/23/22 13:06 Antibiotics) bactrim Allergy Unknown Rash Uncoded 02/22/21 08:18 Home Medications Medication Instructions Recorded Confirmed Last Taken Type fluticasone furoate 50 1 inh inhalation DAILY 01/20/21 03/31/22 Unknown History mcg/actuation blister powder for inhalation loratadine 10 mg tablet (Allergy 10 mg PO DAILY 01/20/21 04/06/22 04/06/22 07:30 History Relief (loratadine)) fluticasone propionate 50 1 spray intranasal BID 02/02/21 03/31/22 02/08/21 History mcg/actuation nasal spray,suspension Exam Airway Mallampati Class: III TM Dist: >3cm Neck ROM: Full Assessment and Plan Assessment Anesthesia Assessment: Anesthesia Plan Discussed Final Anesthetic Review NPO: Yes ASA Class: III Final Preanesthetic Review: No Changes in Pt Med Stat, Meds/Allgs Chart Reviewed, Consent Obtained/Reviewed and Anes Risks/Benef Reviewed Patient Risk: Intermediate Procedure Risk: Low Anesthetic Plan Anesthetic Plan: MAC: Disposition: Standard PACU
--- NOTE | 2022-04-06 09:15 | MHC.SHP ---
Pre-Procedural Eval Section A Date of Service: 04/06/22 Section B Chief Complaint: mid abdominal pain Details of Present Illness: enteritis on Ct imaging, endoscopies to r/o crohns disease Relevant Family History (Specify if Yes): No Relevant Social History: None Present Medications: see Short Stay Collaborative assessment Medical History: Significant History (Acid reflux Allergic rhinitis Asthma Back pain Barretts esophagus GERD (gastroesophageal reflux disease) Heart murmur Hiatal hernia) History of Previous Operations: Relevant previous surgery/procedure and date(s) (History of ankle surgery History of esophagogastroduodenoscopy (EGD) Hx of colonoscopy Hx of myringotomy Hx of tonsillectomy [place] teeth extracted) Allergies: Allergies Allergy/AdvReac Type Severity Reaction Status Date / Time amoxicillin [AMOXICILLIN] Allergy Unknown unk Verified 03/23/22 13:06 Sulfa (Sulfonamide Allergy Unknown rash Verified 03/23/22 13:06 Antibiotics) bactrim Allergy Unknown Rash Uncoded 02/22/21 08:18 Review of Systems Sugical H&P ROS: Negative: Constitution, Cardiovascular, Respiratory, Neurological, Psychiatric, Hem-Onc, Allergic/Immunologic, Gastrointestinal, Genitourinary, Musculoskeletal, Integumentary, Endocrine and Eyes/Ears/Nose/Throat Exam Surgical H&P Exam: Normal: HEENT, Normal: Heart, Normal: Lungs, Normal: Extremities, Normal: Abdomen, Normal: Skin and Normal: Neurological Plan Diagnosis/Plan: Unchanged I have reviewed the history and physical and performed a pertinent physical examination on my patient. No changes have occurred unless specified. Push enteroscopy added to colonoscopy due to imaging with enteritis. r/o crohns disease.
[2022-04-06 09:38] VITALS: BP 150/91; PULSE 94; RESP 18; TEMP 36.3; O2SAT 98
[2022-04-06] MEDS: Lactated Ringers 1,000 ML 100 ML IVCONT (09:44)
--- NOTE | 2022-04-06 09:57 | P.BOP_ITS ---
Brief Operative Note Date of Service: 04/06/22 Pre-op diagnosis: enteritis on Ct imaging, endoscopies to r/o crohns disease Post-op diagnosis: same Procedure: see op note Surgeon: Todd Castellon MD Anesthesia: MAC Was an Fill Plant Operator used for this Procedure?: No Estimated blood loss (mL): 0 Condition: stable Disposition: PACU
--- NOTE | 2022-04-06 09:57 | W.PM.OPN ---
Operative Note Operative Note Date of Service: 04/06/22 Narrative: Operative Information Procedure Description: Push enteroscopy, Colonoscopy Indication: mid abdominal pain, enteritis on Ct imaging, endoscopies to r/o crohns disease Anesthesia: MAC FLEXIBLE TRANSORAL Push enteroscopy AND COLONOSCOPY PROCEDURE NOTE UPPER ENDOSCOPY Consent: Indications for the procedure and potential complications of bleeding, perforation, reaction to medications and missed diagnosis were discussed with the patient and informed consent was obtained. Instrument: Pediatric colonoscope with distal attachment Monitoring: Vital signs and clinical assessment, continuous EKG monitoring, Pulse oximetry, Carbon Dioxide monitoring and blood pressure monitoring were done throughout the procedure. Procedure: The patient was placed in the left lateral decubitis position and pre-procedure medications were administered and a bite block was placed. The endoscope was inserted into the mouth and advanced under direct vision to the third part of duodenum. A careful inspection was made as the upper endoscope was withdrawn including a retroflexed examination of the proximal stomach; Findings and interventions are described below. Findings: Larynx:normal Esophagus: GE junction at 40 cm, diaphragm hiatus at 40 cm, short segment tongues of barretts with inflammation, bx taken Stomach: PAtchy erythema. Biopsies were obtained. Grade 2 flap valve on retroflexed examination of the cardia. Duodenum: bulbar duodenitis, bx taken jejunum: mild erythema, bx taken--at distal most point [place] ink was injected to serve as marker Intervention: Biopsies as noted above COLONOSCOPY Instrument: Olympus variable stiffness adult scope 190L Colonoscopy Monitoring: Vital signs and clinical assessment, continuous EKG monitoring, Pulse oximetry, Carbon Dioxide monitoring and blood pressure monitoring were done throughout the procedure. Colon withdrawal time was 9 minutes. Procedure: The patient was placed in the left lateral decubitis position and pre-procedure medications were administered. After a digital rectal examination of the ano-rectum, the video colonoscope was inserted into the rectum and advanced through the colon to the cecum/TI. The colonoscope was slowly withdrawn in a retrograde panoramic fashion and the colon mucosa was carefully examined including a retroflexed view of the rectum. Findings and interventions are described below. Procedure Difficulty:easy Findings: Terminal Ileum-mild erythema, bx taken random bx taken from right colon and transverse/left in separate jars Cecum:normal Ascending Colon: normal Transverse Colon -normal Descending Colon:normal Sigmoid Colon: normal Rectum: Retroflexion with small internal hemorrhoids, grade I Anorectum - normal Colon preparation: [place] Bowel Preparation Scale Right colon; 2 Transverse colon: 2 Left colon; 2 (0 = Unprepared colon segment with mucosa not seen due to solid stool that cannot be cleared. 1 = Portion of mucosa of the colon segment seen, but other areas of the colon segment not well seen due to staining, residual stool and/or opaque liquid. 2 = Minor amount of residual staining, small fragments of stool and/or opaque liquid, but mucosa of colon segment seen well. 3 = Entire mucosa of colon segment seen well with no residual staining, small fragments of stool or opaque liquid) Impression and Post Procedure Diagnosis: Endoscopy Findings: duodenitis gastritis esophagitis, barretts esophagus Colonoscopy Findings: internal hemorrhoids mile ileitis Plan: Await Pathology results Repeat Colonoscopy aged 45 for CRC screening or earlier if clinically indicated High fiber diet leaflet avoid straining at stool, epsom salts and sitz bath, anusol supps or cream confirm if taking PPI, or if on any nsaids capsule endo as planned Above findings were reviewed with the patient and relevant handouts were provided if indicated.
[2022-04-06 10:54] VITALS: BP 117/87; PULSE 94; RESP 20; TEMP 36.6; O2SAT 98
[2022-04-06 11:11] VITALS: BP 127/75; PULSE 80; RESP 16; TEMP 36.6; O2SAT 96
== END 2022-04-06 12:12 | disposition home or self-care (01) ==
PROVIDERS: PCP Internal Medicine; Visit Provider Internal Medicine Gastroenterology
PROC: 0DJD8ZZ Inspection of Lower Intestinal Tract, Via Natural or Artificial Opening Endoscopic (ICD-10-PCS; CPT 45378; principal; 2022-04-06 10:20)
DX: R10.9 Unspecified abdominal pain (principal); R93.5 Abnormal findings on diagnostic imaging of other abdominal regions, including retroperitoneum; K64.0 First degree hemorrhoids; K52.9 Noninfective gastroenteritis and colitis, unspecified; K29.50 Unspecified chronic gastritis without bleeding; K29.80 Duodenitis without bleeding; K22.70 Barrett's esophagus without dysplasia; K20.80 Other esophagitis without bleeding; K21.9 Gastro-esophageal reflux disease without esophagitis; K44.9 Diaphragmatic hernia without obstruction or gangrene; J45.909 Unspecified asthma, uncomplicated; Z91.51 Personal history of suicidal behavior; Z79.899 Other long term (current) drug therapy; F12.90 Cannabis use, unspecified, uncomplicated; Z88.1 Allergy status to other antibiotic agents; Z88.2 Allergy status to sulfonamides
CPT/HCPCS: 45380; 44361; 44799; 88305; 88342; J2250

== ENCOUNTER 2022-06-01 11:28 | Outpatient (REF) | payer OTHER, SELFPAY ==
[2022-06-01 11:43] LABS: MANUAL DIFF FLAG NO
[2022-06-01 12:36] LABS: Basophils Percent Auto 0.4 % (0-2); Eosinophils Absolute Auto 0.2 X10*3/uL (0.0-0.4); Eosinophils Percent Auto 2.6 % (0-4); Hematocrit 42.7 % (42.0-52.0); Hemoglobin 13.9 g/dl (14.0-18.0); Imm Gran Abs Auto 0.02 X10*3/uL (0.00-0.03); Imm Gran Pct Auto 0.3 % (0.0-0.4); Lymphocytes Absolute Auto 2.3 X10*3/uL (1.2-4.9); Lymphocytes Percent Auto 30.5 % (20-40); Mean Corpuscular HGB Conc 32.6 g/dl (31.0-36.0); Mean Corpuscular Volume 85.9 fL (80.0-98.0); Mean Platelet Volume 9.3 fL (9.4-12.4); Monocytes Absolute Auto 0.5 X10*3/uL (0.1-1.2); Neutrophils Absolute Auto 4.5 x10*3/uL (2.0-8.3); Neutrophils Percent Auto 59.2 % (45-73); Platelet Count 363 X10*3/uL (160-400); Red Blood Count 4.97 X10*6/uL (4.60-5.80); White Blood Count 7.7 X10*3/uL (4.8-10.8)
[2022-06-01 13:02] LABS: Alanine Aminotransferase 42 U/L (0-40); Albumin Level 4.3 g/dL (3.5-5.0); Alkaline Phosphatase 71 U/L (39-117); Anion Gap 14 (12-20); Aspartate Amino Transferase 20 U/L (5-37); Bilirubin Total 0.5 mg/dL (0.0-1.0); Blood Urea Nitrogen 14 mg/dL (9-16); C Reactive Protein 0.49 mg/dL (< or = 0.50); Calcium 9.4 mg/dL (8.4-10.2); Carbon Dioxide 27 mmol/L (22-29); Chloride 105 mmol/L (96-108); Estimated Glomerular Filt Rate > 60; Glucose Random 102 mg/dL (60-115); Potassium 4.3 mmol/L (3.3-5.1); Sodium 142 mmol/L (135-145); Total Protein 7.1 g/dL (6.5-8.0)
[2022-06-01 13:30] LABS: Erythrocyte Sedimentation Rate 13 MM/HR (0-15)
== END 2022-06-01 11:29 | disposition home or self-care (01) ==
LOC: HO.LAB 11:28
PROVIDERS: PCP Internal Medicine; Visit Provider Internal Medicine Gastroenterology
DX: R10.9 Unspecified abdominal pain (principal); K75.81 Nonalcoholic steatohepatitis (NASH)
CPT/HCPCS: 36415; 80053; 85025; 85652; 86140

== ENCOUNTER 2022-08-28 10:38 | Outpatient (REF) | payer OTHER, SELFPAY | END 2022-08-28 10:39 | disposition home or self-care (01) | LOC: HO.LAB 10:38 | PROVIDERS: PCP Internal Medicine; Visit Provider Internal Medicine Gastroenterology | DX: Z13.89 Encounter for screening for other disorder (principal) ==

== ENCOUNTER 2022-09-07 09:16 | Outpatient (REF) | payer OTHER, SELFPAY ==
[2022-09-13 19:02] LABS: Lactoferrin, Fecal, Quant. 8.42 mcg/mL (<7.25)
== END 2022-09-07 09:17 | disposition home or self-care (01) ==
LOC: HO.LNP 09:16
PROVIDERS: Visit Provider Internal Medicine Gastroenterology
DX: K52.9 Noninfective gastroenteritis and colitis, unspecified (principal)
CPT/HCPCS: 83631

== ENCOUNTER 2022-12-26 06:46 | Emergency (ER) | payer OTHER, SELFPAY ==
--- NOTE | ~2022-12-26 | XR_ITS ---
EXAMINATION: XR CHEST CLINICAL INFORMATION: Chest pain COMPARISON: 05/21/2019 TECHNIQUE: Frontal view of the chest was obtained. FINDINGS: There is slight apical lordotic positioning on this chest radiograph. Lungs are well-inflated and clear. Trachea is midline in position. No interstitial disease, consolidation or mass. No pleural effusion or pneumothorax. Cardiac silhouette and pulmonary vessels are normal in size. The mediastinum and jessica have normal contour. The visualized bones, and upper abdomen, are unremarkable. XR/XR chest 1V IMPRESSION: No acute cardiopulmonary abnormality.
--- NOTE | 2022-12-26 06:51 | ECG_ITS ---
Test Reason : CHEST PAIN Blood Pressure : / mmHG Vent. Rate : 129 BPM Atrial Rate : 129 BPM P-R Int : 152 ms QRS Dur : 086 ms QT Int : 294 ms P-R-T Axes : 056 053 009 degrees QTc Int : 430 ms Sinus tachycardia T wave abnormality, consider inferior ischemia Abnormal ECG When compared with ECG of 21-MAY-2019 20:04, T wave inversion more evident in Inferior leads Referred By: Generic ED Physician Electronically Signed By:FATMATA HARVEY MD
[2022-12-26 06:52] VITALS: BP 125/84; PULSE 129; RESP 16; TEMP 36.3; O2SAT 97; BMI 38.5
[2022-12-26 07:14] LABS: Basophils Percent Auto 0.2 % (0-2); Hematocrit 44.1 % (42.0-52.0); Hemoglobin 14.6 g/dl (14.0-18.0); Imm Gran Abs Auto 0.03 X10*3/uL (0.00-0.03); Imm Gran Pct Auto 0.3 % (0.0-0.4); Lymphocytes Absolute Auto 0.4 X10*3/uL (1.2-4.9); Lymphocytes Percent Auto 3.7 % (20-40); MANUAL DIFF FLAG SCAN; Mean Corpuscular HGB Conc 33.1 g/dl (31.0-36.0); Mean Corpuscular Hemoglobin 27.8 pg (27.0-33.0); Mean Platelet Volume 8.8 fL (9.4-12.4); Monocytes Absolute Auto 0.4 X10*3/uL (0.1-1.2); Monocytes Percent Auto 3.8 % (2-11); Neutrophils Absolute Auto 10.2 x10*3/uL (2.0-8.3); Platelet Count 300 X10*3/uL (160-400); Red Blood Count 5.25 X10*6/uL (4.60-5.80); Red Cell Distribution Width 12.9 % (11.0-16.0); SCAN SMEAR FLAG 1; White Blood Count 11.1 X10*3/uL (4.8-10.8)
--- NOTE | 2022-12-26 07:17 | ED_ITS ---
HPI - Chest Pain General Chief Complaint: Chest Pain Stated Complaint: Chest pain Time Seen by Provider: 12/26/22 07:17 Source: patient Mode of arrival: ambulatory Limitations: no limitations History of Present Illness HPI narrative: 37-year-old male who presents emergency department for evaluation of chest pain/abdominal pain. Patient states that he ate a grilled steak tips , broccoli and had 4 vodka drinks yesterday at around 18:00 hours. He states that while he was sitting around 19:00 hours he had a sudden onset of chest pain and abdominal pain. He points to his sternum and epigastric area when asked to localize the pain. He states the pain is a constant burning sensation. He states the pain is 9/10. He states that the pain feels similar to the pain that he had when he had an ulcer. He did take sucralfate at home with no relief his discomfort. He states the pain got worse this morning so he drove to the emergency department for evaluation. At the time my evaluation he states the pain is 9/10 he does appear to be uncomfortable. He denied fever, chills, rhinorrhea. He states he does have a sore throat. He denied cough. He does feel short of breath. He states that he has nausea but no vomiting. He states that last night he did developed for dark diarrheal stools. He did not notice any blood in the stool. He denied frequency, urgency or dysuria. He denied myalgias or arthralgias. The patient states that he does have history of ulcers, GERD and Boo's esophagitis. Related Data Home Medications Medication Instructions Recorded Confirmed fluticasone furoate 50 1 inh inhalation DAILY 01/20/21 03/31/22 mcg/actuation blister powder for inhalation fluticasone propionate 50 1 spray intranasal BID 02/02/21 03/31/22 mcg/actuation nasal spray,suspension Previous Rx's Medication Instructions Recorded sucralfate 1 gram tablet 1 g PO BID #180 tabs 11/05/20 esomeprazole magnesium 40 mg 40 mg PO DAILY #90 caps 04/06/22 capsule,delayed release (Nexium) mesalamine 500 mg capsule,extended 1,000 mg PO BID #120 caps 11/28/22 release pantoprazole 40 mg tablet,delayed 40 mg PO DAILY #30 tabs 12/05/22 release Allergies Allergy/AdvReac Type Severity Reaction Status Date / Time amoxicillin [AMOXICILLIN] Allergy Unknown unk Verified 08/28/22 09:47 Sulfa (Sulfonamide Allergy Unknown rash Verified 08/28/22 09:47 Antibiotics) bactrim Allergy Unknown Rash Uncoded 08/28/22 09:47 Review of Systems Review of Systems: Yes all other systems are reviewed and are negative [facility] Past Medical History [facility] Narrative: Social history: He is . He denies tobacco use, he does drink alcohol did have for vodka drinks yesterday. Denies drug use. Medical History Acid reflux Allergic rhinitis Asthma Back pain Barretts esophagus GERD (gastroesophageal reflux disease) Heart murmur Hiatal hernia Surgical History History of ankle surgery History of esophagogastroduodenoscopy (EGD) Hx of colonoscopy Hx of myringotomy Hx of tonsillectomy [place] teeth extracted Family History Family History Paternal Grandfather Esophageal cancer Mother Diabetes Acid reflux Paternal Grandmother Diabetes Social History Social History Household Members: Spouse and Children Alcohol intake: current Alcohol intake frequency: holidays/special occasions only Patient Tobacco Use Status: Never used Tobacco Substance Use Type: Marijuana Advance Directives: No Advance Directives Information Provided: No 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 [employer] Exam Vital Signs: Vital Signs: Last Vital Signs Temp 97.3 F 12/26/22 06:52 Pulse 129 H 12/26/22 06:52 Resp 16 12/26/22 06:52 BP 125/84 12/26/22 06:52 Pulse Ox 97 12/26/22 06:52 O2 Del Method 12/26/22 06:52 BMI result Body Mass Index 38.5 Const: Other: Awake, alert, male patient, elevated BMI 38.5, does appear to be in distress secondary to his pain, answers all questions appropriately, does not appear dyspneic or diaphoretic HEENT: Head: Yes normal to inspection, Yes normocephalic and Yes atraumatic Ears: external ears normal General nose exam: Normal external nose present Face and sinus: Yes normal facial exam Mouth: Normal oral and palatal mucosa present Throat: Yes posterior oropharynx normal Eyes: General: appearance normal, both eyes and all related structures Pupils: Equal, round and reactive pupils present Neck: Neck: Yes normal visual inspection, Yes no lymphadenopathy, Yes trachea midline and Yes supple Chest: Chest palpation & inspection: normal inspection of the chest and tenderness sternum (Moderate) Resp: Effort & Inspection: normal respiratory effort and able to speak in complete sentences Auscultation: clear to auscultation bilaterally Cardio: Rate: regular rate Rhythm: regular rhythm Heart sounds: S1 normal heart sound present, S2 normal heart sound present and no murmurs GI: Inspection: Yes normal to inspection Palpation (GI): Soft to palpation, Tenderness to palpation present (GI) in the epigastrum (Moderate); not in the RLQ, not in the RUQ and not at McBurney's point and no guarding Auscultation: normal bowel sounds : General: Yes no CVA tenderness Back/Spine/Pelvis: Back: no CVA tenderness Skin: General skin exam: no rashes or lesions noted Neuro: Cranial nerves: Yes CN's II-XII intact bilaterally and Yes Equal, round and reactive pupils present Cognition (Neuro): normal cognition Motor exam (neuro): 5/5 motor strength present throughout Extrem: General: Yes normal to inspection Psych: Appearance: grossly normal Speech and movement: Normal speech and movement present Affect: normal affect Attitude: cooperative Thought process: Normal thought process present Thought content: Normal thought content present Medications Administered Discontinued Medications Generic Name Dose Route Start Last Admin Trade Name Freq PRN Reason Stop Dose Admin Al Hydroxide/Mg Hydroxide 30 ml 12/26/22 10:48 12/26/22 10:56 Magnesium Hydrox/Alum Hydrox 30 Ml Oral.Susp PO 12/26/22 10:49 30 ml ONCE STA Administration Belladonna Alkaloids/Phenobarbital 10 ml 12/26/22 10:48 12/26/22 10:56 Phenobarb/Hyoscy/Atropine/Scop 10 Ml Elixir PO 12/26/22 10:49 10 ml ONCE ONE Administration Hydromorphone HCl 1 mg 12/26/22 07:26 12/26/22 08:54 Hydromorphone Hcl 1 Mg/Ml Syringe IVPUSH 12/26/22 07:27 1 mg ONCE STA Administration Protocol Hydromorphone HCl 1 mg 12/26/22 10:48 12/26/22 10:55 Hydromorphone Hcl 1 Mg/Ml Syringe IVPUSH 12/26/22 10:49 1 mg ONCE STA Administration Protocol Sodium Chloride 1,000 mls @ 999 mls/hr 12/26/22 07:26 12/26/22 09:25 Ns IV 12/26/22 08:26 Infused .Q1H1M STA Infusion Lidocaine HCl 10 ml 12/26/22 10:48 12/26/22 10:55 Lidocaine Hcl Viscous 2 % 15 Ml Solution PO 12/26/22 10:49 10 ml ONCE ONE Administration Ondansetron HCl 4 mg 12/26/22 07:26 12/26/22 08:54 Ondansetron Hcl 4 Mg/2 Ml Vial IVPUSH 12/26/22 07:27 4 mg ONCE ONE Administration Medical Decision Making Medical Decision Making MDM Narrative: 37-year-old male patient who presents emergency department for evaluation of constant abdominal pain that started after eating dinner and drinking alcohol yesterday at around 19:00 hours. The pain is been constant. He states that a round midnight and had 4 dark diarrheal stools. Pain got worse this morning, pain is currently 9/10, he drove himself to the emergency department. Vital signs did reveal tachycardia with a heart rate of 129, he did have sternal tenderness as well as epigastric tenderness. I ordered a laboratory evaluation to include CBC, BMP, liver panel, lipase, troponin, COVID-19, influenza, RSV, occult stool test. Patient was ordered to get normal saline 1 L IV, Zofran 4 mg IV and Dilaudid 1 mg IV. 1052: The patient's laboratory evaluation was unremarkable, patient has no anemia or other significant abnormalities to explain his pain. The 12 EKG was normal and the high sensitivity troponin I was below detectable limits which is reassuring. The patient's chest x-ray was unremarkable. At this time I believe the patient's presentation is consistent with acute gastritis. Patient did get some relief his pain the Dilaudid 1 mg IV but the pain has returned. He was given a 2nd dose of Dilaudid 1 mg IV. I also ordered Maalox 30 mL, viscous lidocaine 10 mL and mL orally. I did do a rectal exam on the patient, patient had loose brown stool which was Hemoccult negative. 1243: Patient is feeling significantly better after the above treatment. This time I suspect the patient has gastritis and I did discuss this with him. Patient was advised to take Tylenol for pain and for pain not relieved by Tylenol he was prescribed morphine. He was also advised to take extra-strength Gaviscon 4 times a day and to continue taking his Prilosec patient was given printed and verbal instructions and discharged home Differential Diagnosis Differential includes was not limited to myocardial infarction, GERD, esophagitis, peptic ulcer disease, cholecystitis, pancreatitis Lab Data MDM Lab Attestation statement: I reviewed the patient's lab results. My independent interpretation patient's laboratory evaluation as follows: CBC was normal. Glucose was elevated 131. High sensitive troponin I was below detectable limits at 3.5 which is reassuring. Lipase was normal at 15. 12/26/22 07:07 12/26/22 07:07 Labs: Lab Results 12/26/22 12/26/22 12/26/22 Range/Units 07:07 07:07 07:07 WBC 11.1 H (4.8-10.8) X10*3/uL RBC 5.25 (4.60-5.80) X10*6/uL Hgb 14.6 (14.0-18.0) g/dl Hct 44.1 (42.0-52.0) % MCV 84.0 (80.0-98.0) fL MCH 27.8 (27.0-33.0) pg MCHC 33.1 (31.0-36.0) g/dl RDW 12.9 (11.0-16.0) % Plt Count 300 (160-400) X10*3/uL MPV 8.8 L (9.4-12.4) fL Immature Gran % (Auto) 0.3 (0.0-0.4) % Neut % (Auto) 92.0 H (45-73) % Lymph % (Auto) 3.7 L (20-40) % Quay % (Auto) 3.8 (2-11) % Eos % (Auto) 0.0 (0-4) % Baso % (Auto) 0.2 (0-2) % Lymph # (Auto) 0.4 L (1.2-4.9) X10*3/uL [place] # (Auto) 0.4 (0.1-1.2) X10*3/uL Eos # (Auto) 0.0 (0.0-0.4) X10*3/uL Baso # (Auto) 0.0 (0.0-0.2) X10*3/uL Abs Immat Gran (auto) 0.03 (0.00-0.03) X10*3/uL Absolute Neuts (auto) 10.2 H (2.0-8.3) x10*3/uL Absolute Nucleated RBC 0.000 (0.0-0.012) X10*3/uL Nucleated RBC % (auto) 0.0 (0.0-0.2) /100WBC Smear Tech's Comments VERIFIED Sodium 140 (135-145) mmol/L Potassium 4.1 (3.3-5.1) mmol/L Chloride 106 (96-108) mmol/L Carbon Dioxide 26 (22-29) mmol/L Anion Gap 12 (12-20) BUN 18 H (9-16) mg/dL Creatinine 0.93 (0.5-1.4) mg/dL Estim Creat Clear Calc 156.4 Estimated GFR > 60 Random Glucose 131 H (60-115) mg/dL Calcium 8.9 (8.4-10.2) mg/dL Total Bilirubin 0.8 (0.0-1.0) mg/dL Direct Bilirubin 0.2 (0.0-0.5) mg/dL AST 21 (5-37) U/L ALT 57 H (0-40) U/L Alkaline Phosphatase 70 (39-117) U/L Troponin I High Sens < 3.5 (<3.5-35.0) ng/L Total Protein 7.0 (6.5-8.0) g/dL Albumin 4.3 (3.5-5.0) g/dL Lipase 15 (8-78) U/L Independent Interpretation I performed an independent interpretation of an: EKG Interpretation: My independent interpretation of the patient's 12 EKG done at 06:52 hours is as follows: Sinus tachycardia with rate of 129, normal NC interval, normal QRS duration normal QTC interval, no ST segment elevation, no ST segment depression, no PACs, no PVCs inverted T-wave lead 3 the. My independent interpretation patient's chest x-ray is as follows: No acute disease Radiology Impression Discussion of test interpretation with radiology: I have reviewed the radiologist's reading. Radiologist Impression: XR chest 1V IMPRESSION: No acute cardiopulmonary abnormality. Dictated By:Ed Laiigned By:<Electronically signed by Ed Lai MD in [place]>12/26/22 0819 Discharge Plan Discharge Clinical Impression: Acute gastritis Patient Disposition: Home, Self-Care Instructions: Gastritis (ED) Additional Instructions: Your blood work was normal Your EKG was normal as well pain Your exam and presentation is consistent with inflammation of your stomach or esophagus (gastritis or esophagitis) Continue taking omeprazole as prescribed by your doctor. Take extra-strength Gaviscon 10 mL (2 tsp) 4 times a day as needed for abdominal pain. Take ibuprofen 200 mg pills, 3 pills every 6 hours as needed for pain. Take Tylenol (acetaminophen) 2 pills every 4-6 hours as needed for pain. For pain not relieved by ibuprofen or Tylenol take morphine 15 mg pills, 1 pill every 4 hours as needed for pain. This medication will make you sleepy, do not drive or work while taking this medication. Morphine is a narcotic medication and can be addicting. If you are concerned about addiction you can ask the pharmacist for less pills or do not get this prescription filled. Prescriptions: No Action sucralfate 1 gram tablet 1 g PO BID Qty: 180 0RF mesalamine 500 mg capsule, extended release 1,000 mg PO BID Qty: 120 2RF pantoprazole 40 mg tablet,delayed release (DR/EC) 40 mg PO DAILY Qty: 30 3RF fluticasone propionate 50 mcg/actuation spray,suspension 1 spray intranasal BID esomeprazole magnesium [Nexium] 40 mg capsule,delayed release(DR/EC) 40 mg PO DAILY Qty: 90 1RF fluticasone furoate 50 mcg/actuation blister with device 1 inh inhalation DAILY
[2022-12-26 07:28] LABS: Anion Gap 12 (12-20); Blood Urea Nitrogen 18 mg/dL (9-16); Calcium 8.9 mg/dL (8.4-10.2); Carbon Dioxide 26 mmol/L (22-29); Chloride 106 mmol/L (96-108); Creatinine Clr Calc Pharmacy 156.4; Estimated Glomerular Filt Rate > 60; Glucose Random 131 mg/dL (60-115); Potassium 4.1 mmol/L (3.3-5.1); Sodium 140 mmol/L (135-145)
[2022-12-26 07:38] LABS: SLIDE REVIEW VERIFIED
[2022-12-26 07:43] LABS: Troponin-I High Sensitivity < 3.5 ng/L (<3.5-35.0)
[2022-12-26 07:48] LABS: Alanine Aminotransferase 57 U/L (0-40); Albumin Level 4.3 g/dL (3.5-5.0); Alkaline Phosphatase 70 U/L (39-117); Aspartate Amino Transferase 21 U/L (5-37); Bilirubin Direct 0.2 mg/dL (0.0-0.5); Bilirubin Total 0.8 mg/dL (0.0-1.0); Lipase 15 U/L (8-78)
[2022-12-26] MEDS: ondansetron HCL 4 MG/2 ML VIAL IVPUSH (08:54)
[2022-12-26] MEDS: 0.9 % Sodium Chloride 1,000 ML 999 ML IV (08:54)
[2022-12-26] MEDS: HYDROmorphone HCl 1 MG/ML SYRINGE IVPUSH ×2 (08:54→10:55)
[2022-12-26] MEDS: Lidocaine HCl Viscous 2 % 15 ML SOLUTION 10 ML PO (10:55)
[2022-12-26] MEDS: Magnesium Hydrox/Alum Hydrox 30 ML ORAL.SUSP PO (10:56)
[2022-12-26] MEDS: PHENobarb/Hyoscy/Atropine/Scop 10 ML ELIXIR PO (10:56)
[2022-12-26 14:28] VITALS: BP 129/81; PULSE 116; RESP 20; O2SAT 97
== END 2022-12-26 14:40 | disposition home or self-care (01) ==
PROVIDERS: Emergency Provider Emergency Medicine Emergency Medical Services; PCP Internal Medicine
DX: K29.00 Acute gastritis without bleeding (principal); R07.89 Other chest pain; J02.9 Acute pharyngitis, unspecified; R10.9 Unspecified abdominal pain; R06.02 Shortness of breath; Z79.899 Other long term (current) drug therapy
CPT/HCPCS: 36415; 71045; 80048; 80076; 83690; 84484; 85025; 93005; 96361; 96374; 96375; 96376; 99284; J1170; J2405

== ENCOUNTER 2023-01-29 08:47 | Outpatient (REF) | payer OTHER, SELFPAY ==
[2023-01-29 09:32] LABS: MANUAL DIFF FLAG NO
[2023-01-29 10:00] LABS: Basophils Percent Auto 0.5 % (0-2); Eosinophils Absolute Auto 0.2 X10*3/uL (0.0-0.4); Eosinophils Percent Auto 2.7 % (0-4); Hemoglobin 13.9 g/dl (14.0-18.0); Imm Gran Abs Auto 0.04 X10*3/uL (0.00-0.03); Imm Gran Pct Auto 0.5 % (0.0-0.4); Lymphocytes Absolute Auto 2.2 X10*3/uL (1.2-4.9); Lymphocytes Percent Auto 25.7 % (20-40); Mean Corpuscular HGB Conc 32.3 g/dl (31.0-36.0); Mean Corpuscular Hemoglobin 27.7 pg (27.0-33.0); Mean Corpuscular Volume 85.7 fL (80.0-98.0); Mean Platelet Volume 9.1 fL (9.4-12.4); Monocytes Absolute Auto 0.6 X10*3/uL (0.1-1.2); Monocytes Percent Auto 6.8 % (2-11); Neutrophils Absolute Auto 5.4 x10*3/uL (2.0-8.3); Neutrophils Percent Auto 63.8 % (45-73); Platelet Count 332 X10*3/uL (160-400); Red Blood Count 5.02 X10*6/uL (4.60-5.80); White Blood Count 8.5 X10*3/uL (4.8-10.8)
[2023-01-29 10:35] LABS: Alanine Aminotransferase 37 U/L (0-40); Albumin Level 4.1 g/dL (3.5-5.0); Alkaline Phosphatase 88 U/L (39-117); Anion Gap 10 (12-20); Aspartate Amino Transferase 16 U/L (5-37); Bilirubin Total 0.3 mg/dL (0.0-1.0); Blood Urea Nitrogen 16 mg/dL (9-16); Calcium 9.1 mg/dL (8.4-10.2); Carbon Dioxide 28 mmol/L (22-29); Chloride 107 mmol/L (96-108); Estimated Glomerular Filt Rate > 60; Glucose Random 101 mg/dL (60-115); Potassium 4.4 mmol/L (3.3-5.1); Sodium 141 mmol/L (135-145); Total Protein 6.8 g/dL (6.5-8.0)
[2023-01-29 10:53] LABS: Ferritin 258 ng/mL (20-250)
[2023-02-01 06:13] LABS: Zinc 59 mcg/dL (60-130)
[2023-02-03 17:07] LABS: Vitamin A 55 mcg/dL (38-98)
[2023-02-07 19:19] LABS: Lactoferrin, Fecal, Quant. <6.25 mcg/mL (<7.25)
== END 2023-01-29 08:48 | disposition home or self-care (01) ==
LOC: HO.LAB 08:47
PROVIDERS: PCP Internal Medicine; Referring Provider Internal Medicine; Visit Provider Internal Medicine Gastroenterology
DX: K21.9 Gastro-esophageal reflux disease without esophagitis (principal); K22.70 Barrett's esophagus without dysplasia; R93.5 Abnormal findings on diagnostic imaging of other abdominal regions, including retroperitoneum; K75.81 Nonalcoholic steatohepatitis (NASH); K51.50 Left sided colitis without complications
CPT/HCPCS: 36415; 80053; 82306; 82728; 83631; 84590; 84630; 85025

== ENCOUNTER 2023-07-30 08:45 | Outpatient (AMB) | payer OTHER, SELFPAY ==
--- NOTE | 2023-07-30 08:45 | MHC.OFFVIS ---
Intake Intake Visit Reasons: 6 month follow up Allergies amoxicillin [AMOXICILLIN] Allergy (Unknown, Verified 07/30/23 08:45) unk Sulfa (Sulfonamide Antibiotics) Allergy (Unknown, Verified 07/30/23 08:45) rash bactrim Allergy (Unknown, Uncoded 07/30/23 08:45) Rash HPI 6 month follow up HPI Details 37 yr old m being called for f/u RECAP: EGD/colonoscopy 03/[address] imaging with enteritis 02/2022, nml LFT barretts mild ileal enteritis reflux changes capsule endoscopy--normal I changed him to nexium for GERD which improved control I commenced him on mesalamine for raised lactoferrin A repeat lactoferrin was negative Interim: Moved to [place] now he still has body aches no abdominal pain, no acid reflux no more dry mouth bowle habits are normal has had issues getting a hold off mesalamine exam; good color, talking easily A/P; 1/ Hx of enteritis, 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 2/ barretts, on PPI PLAN: 1/ cont PPI, annual b12, iron studies, Mag, Vit D--last labs ok 2/ repeat EGD in 2-3 yrs (has some RF for progressive barretts, white race, weight) 3/ try apriso formulation and see if better response, follow up with local GI and rheumatology [facility] Medical History Acid reflux Allergic rhinitis Asthma Back pain Barretts esophagus GERD (gastroesophageal reflux disease) Heart murmur Hiatal hernia Surgical History History of ankle surgery History of esophagogastroduodenoscopy (EGD) Hx of colonoscopy Hx of myringotomy Hx of tonsillectomy [place] teeth extracted Family History Paternal Grandfather Esophageal cancer Mother Diabetes Acid reflux Paternal Grandmother Diabetes Social History Household Members: Spouse and Children Alcohol intake: current Alcohol intake frequency: holidays/special occasions only Patient Tobacco Use Status: Never used Tobacco Substance Use Type: Marijuana 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 Assessment & Plan (1) Barretts esophagus: Comment: History of Boo's, persistent acid reflux,-continue usual medication Next EGD-3 years-2023 Code(s): K22.70 - Boo's esophagus without dysplasia (2) Enteritis: Code(s): K52.9 - Noninfective gastroenteritis and colitis, unspecified Medications: New mesalamine ER (Apriso) 1.5 grams (4 x 0.375 gram) PO QAM 180 caps 3RF Discontinued mesalamine ER Discontinued Reason: Patient Completed Course 1,000 mg (2 x 500 mg) PO BID 120 caps 2RF Telehealth Telehealth Location of provider rendering services: practice address Location of patient: address on file Patient Identification confirmed using: Name, : Yes Telehealth method: video Patient verbally consented to treatment: Yes Patient verbally consented to billing insurance company: Yes Patient informed of any privacy concerns related to visit: Yes Minutes spent on Phone/Video with Pt.: 11 Coding Level of Care Code Tele Est Pt Level 3 (55519) Diagnoses Barretts esophagus K22.70 Enteritis K52.9
== END 2023-07-30 13:32 | disposition home or self-care (01) ==
LOC: HO.HGI 08:45
PROVIDERS: Visit Provider Internal Medicine Gastroenterology
DX: K22.70 Barrett's esophagus without dysplasia (principal); K52.9 Noninfective gastroenteritis and colitis, unspecified
CPT/HCPCS: 99213

== ENCOUNTER → 2023-07-30 08:45 | Outpatient (BNVA) | payer OTHER, SELFPAY | PROVIDERS: Visit Provider Internal Medicine Gastroenterology ==